=== PATIENT | male | born 1980 | race Caucasian/White ===

== ENCOUNTER → 2024-09-15 08:37 | Outpatient (CLI) | payer BC, SELFPAY ==
[2024-09-15 09:00] LABS: Add Manual Diff / Slide Review NO; Hematocrit 40.2 % (41-53); Hemoglobin 13.9 g/dL (13.5-17.5); Lymphocytes Absolute Auto 1900 /uL (1100-4500); Mean Corpuscular HGB Conc 34.7 % (30-36); Mean Corpuscular Hemoglobin 29.8 PG (26-34); Mean Corpuscular Volume 86.1 fL (80-100); Platelet Count 175 X10^3/uL (150-400)
[2024-09-15 09:14] LABS: Alanine Aminotransferase 24 IU/L (<50); Albumin 4.5 g/dL (3.5-5.0); Albumin Globulin Ratio 1.9 (1.0-2.8); Alkaline Phosphatase 54 U/L (38-126); Blood Urea Nitrogen 12 mg/dL (9-20); Calcium 9.4 mg/dL (8.4-10.2); Carbon Dioxide 29 mmol/L (22-32); Chloride 104 mmol/L (98-107); Cholesterol 224 mg/dL (140-199); Estimated Glomerular Filt Rate > 60 mL/min (>60); Globulin 2.4 g/dL (1.7-4.1); Glucose 86 mg/dL (70-99); HDL Cholesterol 59 mg/dL (40-60); HEMOLYSIS < 15 (0-50); Potassium 4.2 mmol/L (3.4-5.1); Sodium 139 mmol/L (137-145); Total Protein 6.9 g/dL (6.3-8.2); Triglycerides 102 mg/dL (35-150)
== END ==
PROVIDERS: PCP Family Medicine; Referring Provider Family Medicine; Visit Provider Family Medicine
DX: Z12.5 Encounter for screening for malignant neoplasm of prostate (principal); E78.5 Hyperlipidemia, unspecified
CPT/HCPCS: 36415; 80053; 80061; 85025; G0103

== ENCOUNTER 2024-12-15 12:59 | Day surgery (SDC) | payer BC, SELFPAY ==
[2024-12-15 13:12] VITALS: BP 161/74; PULSE 81; RESP 16; TEMP 36.7; O2SAT 100
[2024-12-15] MEDS: LACTATED RINGERS 1,000 ML 42 ML IV (13:32)
--- NOTE | 2024-12-15 14:05 | PM.HP.IH.1 ---
History of Present Illness History of Present Illness Date Patient Seen: 12/15/24 Time Patient Seen: 14:05 Chief complaint: Colonoscopy Narrative: Brock is a 43-year-old man with rectal bleeding. See the office note details. [facility] Medical History (Updated 09/21/24 @ 11:42 by Otoniel Palacio DO) BRBPR (bright red blood per rectum) Thyroid nodule FHx: prostate cancer Raynauds syndrome Hyperlipidemia Surgical History (Updated 09/21/24 @ 11:42 by Otoniel Palacio DO) History of anal fistulotomy Family History (Updated 08/31/24 @ 14:22 by Otoniel Palacio DO) Father Cancer Social History (Updated 10/24/24 @ 15:31 by Devendra Jones MA) marital status: household members: spouse occupational status: employed Smoking Status: Never smoker alcohol intake: current Meds Home Medications and Allergies Home Medications ?Medication ?Instructions ?Recorded ?Confirmed ?Type red yeast rice 600 mg capsule 600 mg PO DAILY 08/31/24 12/15/24 History sodium,potassium,mag sulfates 17.5 See Rx Instructions PO .COMPLEX 11/06/24 Rx gram-3.13 gram-1.6 gram oral soln #354 mL (Suprep Bowel Prep Kit) nifedipine 90 mg tablet,extended 30 mg (0.3333 x 90 mg) PO DAILY 12/14/24 12/15/24 Rx release 24 hr #90 tabs Allergies Allergy/AdvReac Type Severity Reaction Status Date / Time No Known Drug Allergies Allergy Unverified 12/15/24 13:07 Exam Vital Signs (past 8 hours): - 12/15/24 13:12 Temperature 98.1 F Pulse Rate 81 Respiratory Rate 16 Blood Pressure 161/74 H Pulse Oximetry 100 Oxygen Delivery Method Room Air Oxygen Delivery Method Room Air Const General: healthy appearing Assessment & Plan Assessment and plan (1) BRBPR (bright red blood per rectum): Status: Acute Plan Colonoscopy Time-Based Coding :: [TOTAL MINUTES] spent with patient and on the chart (including review of chart, obtaining history, exam, reviewing outside data, placing orders, documenting exam and treatment plan, and counseling patient) on [DATE]. [employer] Document charge(s): No
--- NOTE | 2024-12-15 14:31 | PM.OP.COLON ---
Operative Date/Time/Diagnoses Date of procedure: 12/15/24 Time of procedure: 14:31 Pre-op diagnosis: Rectal bleeding Post-op diagnosis: same Procedure & Clinicians Study performed: Colonoscopy Same procedure(s) as scheduled: Yes Surgeon: Ernesto Vernon Anesthesia Type: MAC +/- Procedure Notes Procedure in detail: Surgeon: Ernesto Vernon MD Anesthesia: Zayra Jackson [employer] Procedure: The patient was brought to the endoscopy suite, placed in left lateral decubitus position. The patient was connected to monitoring devices. A time-out was performed. Sedation was administered. Once the patient was adequately sedated, a digital rectal exam was performed and was normal. The scope was then inserted and advanced to the cecum where the appendiceal orifice was identified and photographed. The terminal ileum was intubated and no abnormalities were seen. The scope was then slowly withdrawn over greater than 6 minutes. The mucosa was thoroughly inspected. No polyps or other abnormalities were seen. The scope was retroflexed in the rectum. No abnormalities were seen in the distal rectum. No internal opening was noted. The scope was straightened and removed. There was a small skin tag versus granuloma on the anoderm just distal to the dentate line. There was no active bleeding noted. The patient was awakened and brought to recovery. Scope withdrawal time: 7 minutes Sedation time: 11 minutes EBL: 0 Findings: Normal colon Estimated Blood Loss: 0 Complications: none Post-procedure Recommendations: Colonoscopy in 10 years Disposition: PACU
[2024-12-15 14:33] VITALS: BP 100/56; PULSE 70; RESP 14; TEMP 36.3; O2SAT 97
[2024-12-15 14:35] VITALS: BP 91/52; PULSE 60; RESP 12; O2SAT 99
[2024-12-15 14:40] VITALS: BP 100/56; PULSE 60; RESP 12; O2SAT 99
[2024-12-15 14:51] VITALS: BP 109/64; PULSE 62; RESP 14; TEMP 36.9; O2SAT 98
== END 2024-12-15 15:04 | disposition home or self-care (01) ==
PROVIDERS: PCP Family Medicine; Referring Provider Surgery; Visit Provider Surgery
PROC: 0DJD8ZZ Inspection of Lower Intestinal Tract, Via Natural or Artificial Opening Endoscopic (ICD-10-PCS; CPT 45378; principal; 2024-12-15 14:00)
DX: K62.5 Hemorrhage of anus and rectum (principal)
CPT/HCPCS: 45378; J2704; J7120